=== PATIENT | male | born 2005 | race Caucasian/White ===

== ENCOUNTER 2025-03-13 08:21 | Emergency (ER) | payer BC, SELFPAY ==
--- OUTSIDE RECORDS SUMMARY | 2017-06-07 11:07 | XMS_ITS | Continuity of Care Document ---
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 Name Role Phone Aranza Perdomo Unavailable Unavailable Procedures Procedure Date Blood count, hemoglobin Imm Admin Any Route 1st Vaccine/toxoid C omponent Hepatitis A vac, ped/adol, 2 dose, intra musc Menveo Tdap 7 Yrs & Older Intramuscular 2016 Imm Admin Any Route Addit Vaccine/toxoid Component Preventive checkup, est, 12-17 yrs No Show Office/outpatient visit, est, detailed M Office/outpatient visit, est, exp prob J Preventive checkup, est, 5-11 yrs Blood count, hemoglobin Office/outpatient visit, est, exp prob M Infect antigen, influenza Office/outpatient visit, est, detailed J Infect antigen, immuno, strep, group A J Office/outpatient visit, est, detailed N ov Office/outpatient visit, est, detailed O ct Office/outpatient visit, est, detailed O ct Office/outpatient visit, est, detailed A Office/outpatient visit, est, exp prob A Office/outpatient visit, new, detailed F No Show No Show Office/outpatient visit, est, exp prob O ct Preventive checkup, est, 1-4 yrs 2007 No Show Office/outpatient visit, est, exp prob J un Office/outpatient visit, est, exp prob A Office/outpatient visit, est, exp prob F Office/outpatient visit, est, exp prob J Urinalysis, non-automated, w/o scope May Office/outpatient visit, est, exp prob N Immunization admin, 1 vaccine 7 Flu Vaccine,split,preservative Free,6-35 Months Office/outpatient visit, est, exp prob S Preventive checkup, est, 1-4 yrs 2006 Office/outpatient visit, est, exp prob M Preventive checkup, est, 1-4 yrs 2006 No Show Flu vaccine, split, 6-35 mnth, intramusc ular Immunization admin, 1 vaccine 7 No Show Office/outpatient visit, est, exp prob J No Show No Show Flu vaccine, split, 6-35 mnth, intramusc ular Immunization admin, 1 vaccine 6 Office consultation, prob foc 6 DTaP vaccine, intramuscular Immunization admin, 1 vaccine 6 Chicken pox immunization Immunization admin, each add vaccine Mar Preventive checkup, est, 1-4 yrs 2005 Office/outpatient visit, est, prob foc N ov Office/outpatient visit, est, exp prob O ct Office/outpatient visit, est, exp prob O ct Office/outpatient visit, est, exp prob O ct Preventive checkup, est, 1-4 yrs 2005 MMR virus vaccine, live, subcutaneous or jet Immunization admin, 1 vaccine 6 Hib vaccine, PRP-OMP, 3 dose, intramuscu lar Immunization admin, each add vaccine Dec Pneum vac, polyvalent, intramusc, under 5 yrs Immunization admin, each add vaccine Dec Preventive checkup, est, 006 Blood count, hemoglobin Office/outpatient visit, est, exp prob A pr- Office/outpatient visit, est, exp prob A pr Office/outpatient visit, est, exp prob M Office/outpatient visit, est, exp prob F eb Preventive checkup, est, infant 006 Hib vaccine, PRP-OMP, 3 dose, intramuscu lar Immunization admin, 1 vaccine 6 Pneum vac, polyvalent, intramusc, under 5 yrs Immunization admin, each add vaccine Jun [id number] vaccine, intramuscular Jun Immunization admin, each add vaccine Jun Office/outpatient visit, est, exp prob F eb Airway inhalation treatment Office/outpatient visit, est, prob foc J an Advance Directives Directive Yes / No Effective Date File Name No Information Encounters Encounter Description Practice Location Reason(s) For Visit Diagnoses Date Provider Providers Copied on Encounter [facility], [address], [place], [place], [id number], [place] tel:[phone] [facility] No Information 8 Jennifer Cobian. [address], [place], [place], [id number], [place]. tel:[phone] Preventive checkup, est, 12-17 yrs [facility], [address], [place], [place], [id number], [place] tel:[phone] [facility] preventive exam (chief complaint) Encntr for routine child health exam w/o abnormal findingsDental caries, unspecified 7 Piedad Arias. [address], [place], [place], [id number], [place]. tel:[phone] Referring Provider: Juana Crum, [address], [place], [address] . tel:[phone] [facility], [address], [place], [place], [id number], [place] tel:[phone] [facility] Information [facility] [address], [place], [place], [id number], [place]. tel:[phone] Referring Provider: Juana Crum, [address], [place], [address] . tel:[phone] Office/outpat ient visit, est, detailed [facility], [address], [place], [place], [address], [place] tel:[phone] [facility] Headache (chief complaint)A bdominal pain (PEDS) (chief complaint) Migraine 7 Piedad Carrerall. [address], [place], [place], [address], [place]. tel:[phone] Referring Provider: Juana Crum, [address], [place], [address] . tel:[phone] Office/outpat ient visit, est, exp prob [facility], [address], [place], [place], [address], [place] tel:[phone] [facility] abdominal pain (chief complaint) NauseaFatigue, unspecified type 7 [facility] [address], [place], [place], [address], [place]. tel:[phone] Referring Provider: Juana Crum, [address], [place], [address] . tel:[phone] [facility], [address], [place], [place], [id number], [place] tel:[phone] [facility] No Information 6 Oscar Brian. [address], [place], [place], [id number], [place]. tel:[phone] Preventive checkup, est, 5-11 yrs [facility], [address], [place], [place], [id number], [place] tel:[phone] [facility] preventive exam (chief complaint) Encounter for routine child health examination without abnormal findings 6 [facility] [address], [place], [place], [address], [place]. tel:[phone] Referring Provider: Juana Crum, [address], [place], [address] . tel:[phone] Office/outpat ient visit, est, exp prob [facility], [address], [place], [place], [address], [place] tel:[phone] [facility] fever (chief complaint) Fever, unspecified fever cause 6 Oscar Brian. [address], [place], [place], [address], [place]. [phone] Referring Provider: Juana Crum, [address], [place], [address] . tel:[phone] Office/outpat ient visit, est, detailed [facility], [address], [place], [place], [id number], [place] tel:[phone] [facility] Sore Throat (chief complaint) Acute pharyngitis, unspecified 6 Piedad Arias. [address], [place], [place], [address], [place]. [phone] Referring Provider: Juana Crum, [address], [place], [address] . tel:[phone] Office/outpat ient visit, est, detailed [facility], [address], [place], [place], [address], [place] tel:[phone] [facility] cold symptoms (chief complaint) Sinusitis, Acute 3 Vaneneeyad Pichardocy. [address], [place], [place], [id number], [place]. tel:[phone] Referring Provider: Juana Crum, [address], [place], [address] . tel:[phone] Office/outpat ient visit, est, detailed [facility], [address], [place], [place], [address], [place] tel:[phone] [facility] cough (chief complaint) Bronchitis, AcuteBronchospa sm, Acute Feb- 3 Oscar Brian. [address], [place], [place], [address], [place]. tel:[phone] Referring Provider: Juana Crum, [address], [place], [address] . tel:[phone] Office/outpat ient visit, est, detailed [facility], [address], [place], [place], [id number], [place] tel:[phone] [facility] cold symptoms (chief complaint) Bronchitis, Acute 3 Oscar Brian. [address], [place], [place], [address], [place]. tel:[phone] Referring Provider: Juana Crum, [address], [place], [address] . tel:[phone] Office/outpat ient visit, est, detailed [facility], [address], [place], [place], [address], [place] tel:[phone] [facility] cold symptoms (chief complaint) Bronchitis, Acute Aug-3 0-201 3 Oscar Torres. [address], [place], [place], [id number], [place]. tel:[phone] Referring Provider: Jason Newell. Office/outpat ient visit, est, exp prob [facility], [address], [place], [place], [address], [place] tel:[phone] [facility] cold symptoms (chief complaint) Viral Infection, Unspecified Aug-2 6-201 3 Jennifer Cobian. [address], [place], [place], [address], [place]. tel:[phone] Referring Provider: Jason Newell. Office/outpat ient visit, new, detailed [facility], [address], [place], [place], [address], [place] tel:[phone] [facility] migraine (chief complaint) Migraine, classical w/o intractable migraine 3 Piedad Arias. [address], [place], [place], [address], [place]. tel:[phone] Referring Provider: Juana Crum, [address], [place], [address] . tel:[phone] [facility], [address], [place], [place], [address], [place] tel:[phone] [facility] No Information 3 Piedad Arias. [address], [place], [address], [place]. tel:[phone] [facility], [address], [place], [place], [address], [place] tel:[phone] [facility] No Information 9 Piedad Arias. [address], [place], [place], [address], [place]. [phone] [facility], [address], [place], [place], [address], [place] tel:[phone] [facility] No Information Mar-0 5-200 8 Piedadtyrese Arias. [address], [place], [place], [id number], [place]. tel:[phone] Office/outpat ient visit, est, exp prob [facility], [address], [place], [place], [address], [place] tel:[phone] [facility] cold symptoms (chief complaint) No Information 4-200 8 Oscar Brian. [address], [place], [place], [address], [place]. tel:[phone] Referring Provider: Juana Crum, [address], [place], [address] . tel:[phone] [facility], [address], [place], [place], [address], [place] tel:[phone] [facility] itchy scalp (chief complaint) No Information 8 Piedad Juana. [address], [place], [place], [id number], [place]. tel:[phone] Referring Provider: Juana Crum, [address], [place], [address] . tel:[phone] Preventive checkup, est, 1-4 yrs [facility], [address], [place], [place], [address], [place] tel:[phone] [facility] No Information 1-200 8 Piedad Arias. [address], [place], [place], [address], [place]. tel:[phone] Referring Provider: Juana Crum, [address], [place], [address] . tel:[phone] [facility], [address], [place], [place], [address], [place] tel:[phone] [facility] No Information 8 Jimenesquynh Sandersmy. [address], [place], [place], [address], [place]. tel:[phone] Office/outpat ient visit, est, exp prob [facility], [address], [place], [place], [address], [place] tel:[phone] [facility] No Information 8 George Kirkland. [address], [place], [place], [address], [place]. tel:[phone] Referring Provider: Juana Crum, [address], [place], [address] . tel:[phone] Office/outpat ient visit, est, exp prob [facility], [address], [place], [place], [address], [place] tel:[phone] [facility] No Information 8 Oscar Torres. [address], [place], [place], [address], [place]. tel:[phone] Referring Provider: Juana Crum, [address], [place], [address] . tel:[phone] [facility], [address], [place], [place], [address], [place] tel:[phone] [facility] No Information 8 Piedad Arias. [address], [place], [place], [id number], [place]. tel:[phone] Office/outpat ient visit, est, exp prob [facility], [address], [place], [place], [address], [place] tel:[phone] [facility] No Information 8-200 8 Piedad Arias. [address], [place], [place], [address], [place]. tel:[phone] Referring Provider: Juana Crum, [address], [place], [address] . tel:[phone] Office/outpat ient visit, est, exp prob [facility], [address], [place], [place], [address], [place] tel:[phone] [facility] No Information 5-200 8 Jimenessusi Blunt. [address], [place], [place], [id number], [place]. tel:[phone] Referring Provider: Juana Crum, [address], [place], [address] . tel:[phone] Office/outpat ient visit, est, exp prob [facility], [address], [place], [place], [address], [place] tel:[phone] [facility] No Information 0200 7 George Kirkland. [address], [place], [place], [address], [place]. tel:[phone] [facility], [address], [place], [address], [place] tel:[phone] [facility] No Information 3-200 7 Piedad Arias. [address], [place], [place], [address], [place]. tel:[phone] Office/outpat ient visit, est, exp prob [facility], [address], [place], [place], [address], [place] tel:[phone] [facility] No Information Jan-0 7-200 7 No Information Preventive checkup, est, 1-4 yrs [facility], [address], [place], [place], [address], [place] tel:[phone] [facility] No Information 7 Piedad Juana. [address], [place], [place], [address], [place]. tel:[phone] Office/outpat ient visit, est, exp prob [facility], [address], [place], [place], [address], [place] tel:[phone] [facility] No Information 7 Oscar Brian. [address], [place], [place], [address], [place]. tel:[phone] Preventive checkup, est, 1-4 yrs [facility], [address], [place], [place], [address], [place] tel:[phone] [facility] No Information 7 Piedad Juana. [address], [place], [place], [address], [place]. tel:[phone] [facility], [address], [place], [place], [address], [place] tel:[phone] [facility] No Information 7 Jimenesquynh Sandersmy. [address], [place], [place], [address], [place]. tel:[phone] [facility], [address], [place], [place], [address], [place] tel:[phone] [facility] No Information 7 George Kirkland. [address], [place], [address], [place]. tel:[phone] [facility], [address], [place], [place], [address], [place] tel:[phone] [facility] No Information 7 Piedad Juana. [address], [place], [place], [address], [place]. tel:[phone] Office/outpat ient visit, est, exp prob [facility], [address], [place], [place], [address], [place] tel:[phone] [facility] No Information 7 Piedad Juana. [address], [place], [place], [id number], [place]. tel:[phone] [facility], [address], [place], [place], [address], [place] tel:[phone] [facility] No Information 6 Oscar Brian. [address], [place], [address], [place]. tel:[phone] [facility], [address], [place], [place], [address], [place] tel:[phone] [facility] No Information 6 Piedad Juana. [address], [place], [place], [address], [place]. tel:[phone] [facility], [address], [place], [place], [address], [place] tel:[phone] [facility] No Information 6 [facility] [address], [place], [id number], [place]. tel:[phone] [facility], [address], [place], [place], [address], [place] tel:[phone] [facility] No Information 6 Oscar Brian. [address], [place], [place], [address], [place]. tel:[phone] Office consultation, prob foc [facility], [address], [place], [place], [address], [place] tel:[phone] [facility] No Information 4-200 6 Piedad Arias. [address], [place], [place], [address], [place]. tel:[phone] Preventive checkup, est, 1-4 yrs [facility], [address], [place], [place], [address], [place] tel:[phone] [facility] No Information 0 3-200 6 Piedad Arias. [address], [place], [place], [address], [place]. tel:[phone] Office/outpat ient visit, est, exp prob [facility], [address], [place], [place], [address], [place] tel:[phone] [facility] No Information 3 0-200 6 Oscar Brian. [address], [place], [place], [address], [place]. tel:[phone] Office/outpat ient visit, est, exp prob [facility], [address], [place], [place], [address], [place] tel:[phone] [facility] No Information 2 5-200 6 Oscar Brian. [address], [place], [place], [address], [place]. tel:[phone] Referring Provider: Juana Crum, [address], [place], [address] . tel:[phone] Office/outpat ient visit, est, exp prob [facility], [address], [place], [place], [address], [place] tel:[phone] [facility] No Information 2-200 6 Piedad Arias. [address], [place], [place], [address], [place]. tel:[phone] Preventive checkup, est, 1-4 yrs [facility], [address], [place], [place], [address], [place] tel:[phone] [facility] No Information Dec-0 2-200 6 Piedad Arias. [address], [place], [place], [address], [place]. tel:[phone] Preventive checkup, est, infant [facility], [address], [place], [place], [address], [place] tel:[phone] [facility] No Information September-0 2-200 6 Piedad Arias. [address], [place], [place], [address], [place]. tel:[phone] Office/outpat ient visit, est, exp prob [facility], [address], [place], [place], [address], [place] tel:[phone] [facility] No Information Aug-2 0-200 6 Oscar Selfd. [address], [place], [place], [address], [place]. tel:[phone] Office/outpat ient visit, est, exp prob [facility], [address], [place], [place], [address], [place] tel:[phone] [facility] No Information 1 0-200 6 George Marita. [address], [place], [place], [address], [place]. tel:[phone] Office/outpat ient visit, est, exp prob [facility], [address], [place], [place], [address], [place] tel:[phone] [facility] No Information Jul-0 9-200 6 Nora Ledezma. [address], [place], [place], [address], [place]. tel:[phone] Office/outpat ient visit, est, exp prob [facility], [address], [place], [place], [address], [place] tel:[phone] [facility] No Information 2-200 6 Piedad Juana. [address], [place], [place], [address], [place]. tel:[phone] Preventive checkup, est, infant [facility], [address], [place], [place], [address], [place] tel:[phone] [facility] No Information 8-200 6 Piedad Juana. [address], [place], [place], [address], [place]. tel:[phone] Office/outpat ient visit, est, exp prob [facility], [address], [place], [place], [address], [place] tel:[phone] [facility] No Information 3-200 6 Piedad Juana. [address], [place], [place], [address], [place]. tel:[phone] Office/outpat ient visit, est, prob foc [facility], [address], [place], [place], [address], [place] tel:[phone] [facility] No Information 9200 6 Piedad Juana. [address], [place], [place], [id number], [place]. tel:[phone] Family History Family Member Type Diagnosis Age At Onset Mother Problem (finding) migraine Immunizations Vaccine Date Status Comments Tdap administered Source: New Imm unization Record Meningococcal administered Note: replacem ent immunization ; Source: New Immunization Record Hep A (ped/adol, 2 dose) administered Chelsey rce: New Immunization Record Hep A (ped/adol, 2 dose) administered Chelsey rce: Other Registry MMR administered Source: Other R egistry Varicella administered Source: Other R egistry DTaP - IPV (4-6 yr) administered Source: Other Registry Flu (split) (6-35 mos) administered Sour e: New Immunization Record Flu (split) (6-35 mos) administered Sour e: New Immunization Record Flu (split) (6-35 mos) administered Sour e: New Immunization Record DTaP administered Source: New Imm unization Record Varicella administered Source: New Imm unization Record Hib (PRP-D) administered Source: New Imm unization Record MMR administered Source: New Imm unization Record Prevnar 13 administered Source: New Imm unization Record Hib (PRP-D) administered Source: New Imm unization Record polio, inactivated (ivp) administered Chelsey rce: New Immunization Record hep B (ped/adol, 3 dose) administered Chelsey rce: New Immunization Record DTaP administered Source: New Imm unization Record Prevnar 13 administered Source: New Imm unization Record Hib (PRP-D) administered Source: New Imm unization Record polio, inactivated (ivp) administered Chelsey rce: New Immunization Record hep B (ped/adol, 3 dose) administered Chelsey rce: New Immunization Record DTaP administered Source: New Imm unization Record Prevnar administered Source: New Imm unization Record Hib (PRP-D) administered Source: New Imm unization Record polio, inactivated (ivp) administered Chelsey rce: New Immunization Record hep B (ped/adol, 3 dose) administered Chelsey rce: New Immunization Record DTaP administered Source: New Imm unization Record Prevnar administered Source: New Imm unization Record Payers Payer name Insurance type Covered libertarian ID Authoriza tion(s) [facility] Medicaid [id number] [employer] [place] [id number] Social History Type Description Quantity Date Captured Comments Alcohol Use Details Unknown Caffeine Use Details Unknown Tobacco Use Status No Information Smoking Status No Information Sex Male Chief Complaint And Reason For Visit No Information Reason For Referral Reason For Referral No Information Plan Of Treatment Date Type Action Status Referral Ordered: Referrals: Neurology - Pediatric Appointment date/timeframe: 08/24/2016 ordered Future Order: Lab Order CBC w/di ff ([id number]), Added on: New Future Order: Lab Order TSH+Free T4 ([id number]), Added on: New Future Order: Lab Order CMP ([id number]), A dded on: New History Of Present Illness Encounter Date Complaint History Of Prese nt Illness preventive exam Here with mom an d aunt for his physical. He will be starting 7 th grade at [employer]. He is currently staying with an Aunt as his mom is going back to rehab tomorrow. Last year he did well with his learning at school but was absent from school some with headaches and some other family stuff. His mom and aunt wanted to talk about his sleep. For years he was having issues sometimes getting to sleep and also staying a sleep. THe aunt he is staying wiht now is not the aunt that is here. He has been with this aunt Since October. Mom says he stays on his phone till late. Vargas told me he is not having sleeping issues now and that gets to sleep in about 1/2 hour. He does stay on media late and we discussed the importance of turning off media at least 1/2 hour before bedtime. Headache The severity of the problem is moderate. The problem has not changed. Locations affected include frontal. Headache timing includes no pattern. Symptoms are associated with stress. Symptoms are not associated with recent head trauma. Denies aggravating factors. Symptoms are relieved by OTC meds and prescription meds. Pertinent negatives include fever. Additional information: Patient ahs a history of migraines diagnosed by a previous Dr in [place]. Migraines are decsribed as pounding. When he has his migraines he gets sensitive to light and also sounds. He has had nauseas and vomiting. Migraines do ususally respond to OTC meds. He has seen a nwurologist and is on prventative medications. Migraines acan be 1-2 days a week pr mihai few weeks.. he ahs missed school becuase of his migraines. Abdominal pain (PEDS) Associated symptoms include weight gain. Pertinent negatives include fever. abdominal pain Onset: 10 Days. Aggravating factors include eating. Associated symptoms include constipation, nausea and frewuent headaches and ibuprofen use. Pertinent negatives include change in appetite, diarrhea, fever and vomiting. preventive exam He is here for a 9 year well exam. No concerns. He has been happy, helathy, and active. fever Onset: 1 day ago . Associated symptoms include arthralgias and decreased appetite. Pertinent negatives include cough, diarrhea, pharyngitis, rash and vomiting. Sore Throat The severity of the problem is moderate and has worsened. Symptoms are associated with exposure to strep and sick family member. Denies aggravating factors. Denies relieving factors. Associated symptoms include fatigue, fever, headache, nasal congestion, pharyngitis and sinus pressure. Pertinent negatives include cough and wheezing. Additional information: started a few weeks ago. Functional Status Date Functional Assessmen t No Information Instructions Date Instruction Additional Infor ovidio Advised his mom or a unt get him a dental visit. Patine tknows he should be brushing at least 2 times a day. Related to Dental caries, unspecified Follow at next sched uled well child check and sooner as needed. Adacel and meningitis immunizations given today. Related to Encntr for routine child health exam w/o abnormal findings Oral Health Discussed (-14 yea rs) Related to Encntr for routine child health exam w/o abnormal findings Age appropriate safe ty discussed (11-14 years) Related to Encntr for routine child health exam w/o abnormal findings Age appropriate diet discussed (11-14 years) Related to Encntr for routine child health exam w/o abnormal findings Age appropriate anti cipatory guidance discussed (11-14 years) Related to Encntr for routine child health exam w/o abnormal findings Given his age and th e fact that his migrianes have been frequent will refer to neurology. Note for school given to excuse when he gets migreianse and so the school does know that he is seeing a doctor for his medical issues. Will continue current meds until he sees newurology. He may be a candidate for imaging or addtional blood testing. Related to Migraine Gastritis vs constip ation. Will get labs and f/u when results are in. Monitor stool habits. Increase fluids. Start trial of zantac. Related to Nausea Recommend returning to clinic in one year for a well exam or as needed with concerns. Vaccines are current at this time. Will plan on shots next year: Hep A #2, William Mauricio. I encouraged him to work on improving his dental care. Related to Encounter for routine child health examination without abnormal findings Symptom care. Monito r for new or worsening symptoms. Call or RTC PRN. Related to Fever, unspecified fever cause Assessments Type Assessment Date No Information Patient Care Teams Name Effective Dates (start - stop) Status Members No Information
--- NOTE | ~2025-03-13 | XR_ITS ---
EXAMINATION: XR ankle RT min 3V DATE: 03/13/2025 08:45 INDICATION: Lateral right ankle pain post injury TECHNIQUE: Anteroposterior, oblique, mortise, and lateral views of the right ankle were obtained. COMPARISON: None. FINDINGS: Alignment is normal. No fracture. Joint spaces are well maintained. No soft tissue swelling about the lateral malleolus. There is also a moderate-sized right ankle joint effusion. IMPRESSION: 1. Right ankle joint effusion and lateral sided soft tissue swelling. No osseous abnormality. Reviewed, dictated and finalized at location A. IMPRESSION: 1. Right ankle joint effusion and lateral sided soft tissue swelling. No osseou s abnormality.
[2025-03-13 08:34] VITALS: BP 135/77; PULSE 67; RESP 18; TEMP 36.7; O2SAT 100
--- NOTE | 2025-03-13 09:00 | ED_ITS ---
HPI - Extremity Injury (Lower) General Chief Complaint: Extremity Injury, Lower Stated Complaint: R Ankle Time Seen by Provider: 03/13/25 09:00 Source: patient and RN notes reviewed Mode of arrival: ambulatory Limitations: no limitations History of Present Illness HPI Narrative: 19-year-old male Presents Express Care complaining of injury to right ankle. Patient reports last night about 13 hours ago he was playing basketball when he jumped for a rebound and went he came down he rolled his right ankle. Patient reports pain with bearing weight to his right ankle. Patient denies any numbness, tingling or any other injuries. Patient is in trying to help with symptoms. Patient denies any significant past medical history. Related Data Home Medications ?Medication ?Instructions ?Recorded ?Confirmed ?Last Taken ?Type No Home Medications 03/13/25 03/13/25 U nknown History Allergies Allergy/AdvReac Type Severity Reaction Status Date / Time No Known Allergies Allergy Mild Verified 03/13/25 08:37 Review of Systems Review of Systems: CONSTITUTIONAL: Denies fever, chills, or sweats. EYES: Denies visual changes, redness, or discharge. ENT: Denies rhinorrhea, congestion, sore throat, or otalgia. CARDIOVASCULAR: Denies chest pain, palpitations, or edema. RESPIRATORY: Denies cough or dyspnea. GASTROINTESTINAL: Denies abdominal pain, nausea, vomiting, or diarrhea. GENITOURINARY: Denies dysuria or hematuria. SKIN: Denies rash, wound, or itching. MUSCULOSKELETAL: Denies back pain, joint pain, or myalgia. Positive for right ankle injury and swelling NEUROLOGIC: Denies headache, numbness, or weakness. PSYCHIATRIC: Denies anxiety or depression. All other systems reviewed are negative, except as documented in HPI. PMFSH Comments At the time of my signature, I reviewed and agree with the nursing past medical, surgical, social, and family history. There is no relevant family history pertinent to the patient complaint. Exam Narrative: GENERAL: This is a well-nourished, well-developed adult, in no apparent distress. They are non ill-appearing, nontoxic appearing. HEAD: normocephalic, atraumatic. EYES: Sclera clear/white. Vision is grossly intact. Conjunctiva normal. Extraocular movement intact. EARS: External ears normal Hearing grossly intact. NOSE: External nose normal THROAT: Mucous membranes moist NECK: Neck supple CARDIOVASCULAR: Regular rate and rhythm RESPIRATORY: Respiratory rate normal, respiratory effort nonlabored, no respiratory distress NEURO: awake, alert, and oriented to person, place and time. There were no obvious focal neurologic abnormalities. EXTREMITIES: Right ankle: No obvious deformity, injury, bruising, redness. Lateral ankle moderately swollen. There is pain through full range of motion. Lateral tenderness to palpation. Capillary refill less than 3 seconds. Right pedal Pulse 2 +palpable. Normal sensation. Neurovascular status intact distal injury. Patient able to wiggle his toes. Negative Salcido's test. BACK: Nontender without deformity. Course Course Emergency Course: Portions of this record may have been created with voice recognition software Level of Care: Express Care Visit Vital Signs Vital signs: Vital Signs Temperature 98.0 F 03/13/25 08:34 Pulse Rate 67 03/13/25 08:34 Respiratory Rate 18 03/13/25 08:34 Blood Pressure 135/77 03/13/25 08:34 Pulse Oximetry 100 03/13/25 08:34 Oxygen Delivery Room Air 03/13/25 08:34 Temperature 98.0 F 03/13/25 08:34 Pulse Rate 67 03/13/25 08:34 Respiratory Rate 18 03/13/25 08:34 Blood Pressure 135/77 03/13/25 08:34 Pulse Oximetry 100 03/13/25 08:34 Oxygen Delivery Room Air 03/13/25 08:34 Reviewed MDM - Extremity Injury (Lower) MDM Narrative Medical decision making narrative: X-ray right ankle negative for any fracture or acute findings. Patient given Son wrap for compression. Discussed rice therapy. Likely an ankle sprain. Offered patient crutches he declined. Discussed physical exam findings. Advised supportive measures and signs/symptoms to go to the ER. Pt is appropriate for outpt treatment and f/u. Differential Diagnosis Differential diagnosis: Likely ankle sprain and strain, ankle fracture and other (Ankle contusion, ankle injury) Imaging Data Radiologist's impression: ITS Impressions Ankle X-Ray 03/13/25 08:51 IMPRESSION: 1. Right ankle joint effusion and lateral sided soft tissue swelling. No osseous abnormality. Critical Care Time Critical Care Time Critical Care Time: No Discharge Plan Discharge Clinical Impression: Ankle sprain and strain Patient Disposition: Home Condition: Stable Instructions: Ankle Sprain (ED) Additional Instructions: The x-ray of your right angles negative for any fractures or acute findings. Rest and elevate the leg; bear weight as tolerated Apply ice 15-20 minute intervals several times a day Keep it wrapped with SON or use a soft ankle splint You may take ibuprofen 600 mg to 800 mg every 6-8 hours. Do not exceed more than 800 mg of ibuprofen per dose. Do not exceed more than 3200 mg ibuprofen in a day. You may take up to 1000 mg Tylenol every 6-8 hours. Do not exceed 1000 mg per dose, do exceed more than 4000 mg of Tylenol in a day. Follow up with your primary care provider orthopedist as needed in 1-2 weeks especially if pain persists after 10 days. Patient Language: Serbian Prescriptions: No Action No Home Medications Follow-up/Referrals: Daryn Banuelos MD [Physician, Orthopedics] UNKNOWN,DOCTOR [Primary Care Provider] Stand Alone Forms: Work/School Release IP Time of Disposition: 09:07
== END 2025-03-13 09:20 | disposition home or self-care (01) ==
DX: S93.401A Sprain of unspecified ligament of right ankle, initial encounter (principal); S96.911A Strain of unspecified muscle and tendon at ankle and foot level, right foot, initial encounter; X50.9XXA Other and unspecified overexertion or strenuous movements or postures, initial encounter; Y93.67 Activity, basketball
CPT/HCPCS: 73610; 99203; G0463